=== PATIENT | male | born 1960 | race Caucasian/White ===

== ENCOUNTER → 2017-03-25 | Outpatient (CLI) | payer MEDICARE, OTHER ==
[2017-03-25 08:53] LABS: BASO % 0.6 % (0.0-1.0); EOS # 0.2 10*3/uL (0.0-0.4); EOS % 3.5 % (1.0-4.0); HEMATOCRIT 39.8 % (42.0-52.0); HEMOGLOBIN 13.2 g/dl (14.0-18.0); LYMPH # 1.4 10*3/uL (1.3-4.4); LYMPH % 26.6 % (27.0-41.0); MEAN CORPUSCULAR HGB 29.9 pg (27.0-31.0); MEAN CORPUSCULAR HGB CONC 33.2 g/dl (33.0-37.0); MEAN PLATELET VOLUME 8.8 fl (9.6-12.3); MONO # 0.5 10*3/uL (0.1-1.0); MONO % 9.4 % (3.0-9.0); NEUT # 3.2 10*3/uL (2.3-7.9); NEUT % 59.5 % (47.0-73.0); PLATELET COUNT AUTOMATED 200 10*3/uL (130-400); RED BLOOD COUNT 4.42 10*6/uL (4.50-5.90); WHITE BLOOD COUNT 5.4 10*3/uL (4.8-10.8)
[2017-03-25 09:23] LABS: ALBUMIN 3.5 gm/dl (3.1-4.5); ALKALINE PHOSPHATASE 64 U/L (45-117); BILIRUBIN, DIRECT < 0.1 mg/dL (0.0-0.2); BILIRUBIN, TOTAL 0.4 mg/dl (0.2-1.0); BUN 10 mg/dl (7-24); CARBON DIOXIDE 29 mmol/L (21-32); CHLORIDE 103 mmol/L (98-107); CHOLESTEROL 241 mg/dL (<200); EST GLOM FILT AFRICAN AMERICAN > 60 ml/min; GLUCOSE 110 mg/dL (65-99); HDL CHOLESTEROL 62 mg/dl (40-60); LDL CHOLESTEROL 126 mg/dL (9-159); PHOSPHOROUS 3.2 mg/dL (2.5-4.9); POTASSIUM 4.3 mmol/L (3.5-5.1); SGOT/AST 16 IU/L (3-35); SGPT/ALT 27 U/L (12-78); SODIUM 141 mmol/L (136-145); TOTAL PROTEIN 6.6 gm/dL (6.4-8.2); TRIGLYCERIDES 263 mg/dl (<150); VLDL CHOLESTEROL 53 mg/dL (6-40)
[2017-03-25 09:25] LABS: C-REACTIVE PROTEIN < 0.29 MG/DL (0-0.3)
[2017-03-25 09:59] LABS: FOLIC ACID > 24.00 ng/mL (>5.38)
[2017-03-26 08:12] LABS: RHEUMATOID ARTHRITIS FACTOR 10.1 IU/mL (0.0-13.9)
[2017-03-26 11:04] LABS: ANTI-RNP ANTIBODIES 0.9 AI (0.0-0.9); ANTI-SMITH ANTIBODIES <0.2 AI (0.0-0.9)
[2017-03-26 12:07] LABS: LYME AB/TOTAL IMMUNOGLOBULINS <0.91 ISR (0.00-0.90)
== END | disposition home or self-care (01) ==
LOC: LAB 08:26
PROVIDERS: Physician Assistant
DX: M17.11 Unilateral primary osteoarthritis, right knee (principal); M25.461 Effusion, right knee; E78.2 Mixed hyperlipidemia; I10 Essential (primary) hypertension

== ENCOUNTER → 2018-02-03 | Outpatient (CLI) | payer MEDICARE, OTHER ==
[2018-02-03 09:57] LABS: BASO # 0.1 10*3/uL (0.0-0.1); BASO % 0.7 % (0.0-1.0); EOS # 0.2 10*3/uL (0.0-0.4); EOS % 2.7 % (1.0-4.0); HEMATOCRIT 42.9 % (42.0-52.0); LYMPH # 2.6 10*3/uL (1.3-4.4); LYMPH % 31.4 % (27.0-41.0); MEAN CELL VOLUME 90.1 fl (80.0-94.0); MEAN CORPUSCULAR HGB 29.4 pg (27.0-31.0); MEAN CORPUSCULAR HGB CONC 32.6 g/dl (33.0-37.0); MEAN PLATELET VOLUME 9.2 fl (9.6-12.3); MONO # 0.8 10*3/uL (0.1-1.0); MONO % 9.5 % (3.0-9.0); NEUT # 4.5 10*3/uL (2.3-7.9); NEUT % 55.2 % (47.0-73.0); PLATELET COUNT AUTOMATED 261 10*3/uL (130-400); RED BLOOD COUNT 4.76 10*6/uL (4.50-5.90); RED CELL DISTRI WIDTH 12.3 % (0-14.5); WHITE BLOOD COUNT 8.2 10*3/uL (4.8-10.8)
[2018-02-03 10:17] LABS: ALBUMIN 3.7 gm/dl (3.1-4.5); ALKALINE PHOSPHATASE 82 U/L (45-117); BILIRUBIN, DIRECT 0.1 mg/dL (0.0-0.2); BUN 10 mg/dl (7-24); CHLORIDE 102 mmol/L (98-107); CHOLESTEROL 235 mg/dL (<200); CREATININE 0.86 mg/dL (0.70-1.30); HDL CHOLESTEROL 61 mg/dl (40-60); LDL CHOLESTEROL 130 mg/dL (9-159); POTASSIUM 4.6 mmol/L (3.5-5.1); SGOT/AST 28 IU/L (3-35); SGPT/ALT 44 U/L (12-78); SODIUM 138 mmol/L (136-145); TOTAL PROTEIN 7.2 gm/dL (6.4-8.2); TRIGLYCERIDES 220 mg/dl (<150); VLDL CHOLESTEROL 44 mg/dL (6-40)
[2018-02-04 21:04] LABS: AMPHETAMINE SCREEN, URINE Negative ng/mL (Cutoff=1000); BARBITURATES SCREEN, URINE Negative ng/mL (Cutoff=200); BENZODIAZEPINES SCREEN URINE Negative ng/mL (Cutoff=200); BUPRENORPHINE SCREEN URINE Negative ng/mL (Cutoff=10); CANNABINOID SCREEN, URINE Negative ng/mL (Cutoff=20); CREATININE, UR 57.7 mg/dL (20.0-300.0); METHADONE SCREEN, URINE Negative ng/mL (Cutoff=300); OPIATE SCREEN, URINE Positive ng/mL (Cutoff=300); OXYCODONE SCREEN URINE Positive ng/mL (Cutoff=100); PH URINE 5.4 (4.5-8.9); PROPOXYPHENE SCREEN, URINE Negative ng/mL (Cutoff=300)
[2018-02-05 00:03] LABS: TESTOSTERONE FREE, (DIRECT) 6.2 pg/mL (7.2-24.0)
== END | disposition home or self-care (01) ==
LOC: LAB 09:14
PROVIDERS: Internal Medicine
DX: E78.2 Mixed hyperlipidemia (principal); I10 Essential (primary) hypertension; F11.90 Opioid use, unspecified, uncomplicated; M48.061 Spinal stenosis, lumbar region without neurogenic claudication; G89.4 Chronic pain syndrome

== ENCOUNTER → 2019-03-30 | Outpatient (CLI) | payer MEDICARE, OTHER ==
[~2019-03-30] MED LIST: AMOXICILLIN500 M2 PO
[2019-03-30 13:27] LABS: BASO % 0.4 % (0.0-1.0); EOS # 0.2 10*3/uL (0.0-0.4); EOS % 2.9 % (1.0-4.0); HEMATOCRIT 43.8 % (42.0-52.0); HEMOGLOBIN 14.6 g/dl (14.0-18.0); LYMPH # 2.3 10*3/uL (1.3-4.4); LYMPH % 28.5 % (27.0-41.0); MEAN CELL VOLUME 91.6 fl (80.0-94.0); MEAN CORPUSCULAR HGB 30.5 pg (27.0-31.0); MEAN CORPUSCULAR HGB CONC 33.3 g/dl (33.0-37.0); MEAN PLATELET VOLUME 9.3 fl (9.6-12.3); MONO # 0.6 10*3/uL (0.1-1.0); MONO % 8.1 % (3.0-9.0); NEUT # 4.7 10*3/uL (2.3-7.9); NEUT % 59.5 % (47.0-73.0); PLATELET COUNT AUTOMATED 235 10*3/uL (130-400); RED BLOOD COUNT 4.78 10*6/uL (4.50-5.90); RED CELL DISTRI WIDTH 11.9 % (0-14.5); WHITE BLOOD COUNT 7.9 10*3/uL (4.8-10.8)
[2019-03-30 13:58] LABS: ALBUMIN 3.6 gm/dl (3.1-4.5); BILIRUBIN, DIRECT 0.1 mg/dL (0.0-0.2); BUN 16 mg/dl (7-24); CHLORIDE 103 mmol/L (98-107); CREATININE 0.91 mg/dL (0.70-1.30); PHOSPHOROUS 3.6 mg/dL (2.5-4.9); POTASSIUM 5.2 mmol/L (3.5-5.1); SGOT/AST 14 IU/L (3-35); SGPT/ALT 30 U/L (12-78); SODIUM 138 mmol/L (136-145); TOTAL PROTEIN 6.6 gm/dL (6.4-8.2)
[2019-03-30 14:07] LABS: ALKALINE PHOSPHATASE 75 U/L (45-117)
[2019-03-31 17:09] LABS: BARBITURATE, URINE Negative ng/mL (Cutoff=200); CANNABINOID, URINE Negative ng/mL (Cutoff=20); CREATININE, UR 48.5 mg/dL (20.0-300.0)
[2019-04-01 08:08] LABS: TESTOSTERONE FREE, (DIRECT) 2.7 pg/mL (7.2-24.0)
== END | disposition home or self-care (01) ==
LOC: LAB 13:00
PROVIDERS: Internal Medicine
DX: G89.4 Chronic pain syndrome (principal); I10 Essential (primary) hypertension

== ENCOUNTER → 2019-05-04 | Outpatient (CLI) | payer MEDICARE, OTHER, MEDICAID | END | disposition home or self-care (01) | LOC: MRI 13:34 | DX: M17.11 Unilateral primary osteoarthritis, right knee (principal); M25.461 Effusion, right knee ==

== ENCOUNTER → 2019-11-01 | Outpatient (CLI) | payer MEDICARE, OTHER ==
[2019-11-01 11:57] LABS: BASO % 0.4 % (0.0-1.0); EOS # 0.2 10*3/uL (0.0-0.4); EOS % 3.4 % (1.0-4.0); HEMATOCRIT 43.8 % (42.0-52.0); HEMOGLOBIN 14.1 g/dl (14.0-18.0); LYMPH # 2.5 10*3/uL (1.3-4.4); LYMPH % 36.4 % (27.0-41.0); MEAN CELL VOLUME 91.8 fl (80.0-94.0); MEAN CORPUSCULAR HGB 29.6 pg (27.0-31.0); MEAN CORPUSCULAR HGB CONC 32.2 g/dl (33.0-37.0); MEAN PLATELET VOLUME 9.4 fl (9.6-12.3); MONO # 0.7 10*3/uL (0.1-1.0); MONO % 10.1 % (3.0-9.0); NEUT # 3.3 10*3/uL (2.3-7.9); NEUT % 49.6 % (47.0-73.0); PLATELET COUNT AUTOMATED 273 10*3/uL (130-400); RED BLOOD COUNT 4.77 10*6/uL (4.50-5.90); RED CELL DISTRI WIDTH 11.9 % (0-14.5); WHITE BLOOD COUNT 6.8 10*3/uL (4.8-10.8)
[2019-11-01 11:59] LABS: BILIRUBIN NEGATIVE (NEGATIVE); BLOOD 2+ (NEGATIVE); CLARITY CLEAR (CLEAR); COLOR YELLOW (YELLOW); GLUCOSE NEGATIVE (NEGATIVE); KETONE NEGATIVE (NEGATIVE); LEUKO ESTERASE NEGATIVE (NEGATIVE); NITRITE NEGATIVE (NEGATIVE); UROBILINOGEN 0.2 E.U./dl (0.2-1.0)
[2019-11-01 12:12] LABS: WBC 0-2 wbc/hpf (0-5)
[2019-11-01 12:15] LABS: ALBUMIN 3.8 gm/dl (3.1-4.5); ALKALINE PHOSPHATASE 80 U/L (45-117); BILIRUBIN, DIRECT 0.1 mg/dL (0.0-0.2); BUN 15 mg/dl (7-24); CHLORIDE 101 mmol/L (98-107); CREATININE 0.78 mg/dL (0.70-1.30); PHOSPHOROUS 3.3 mg/dL (2.5-4.9); POTASSIUM 4.5 mmol/L (3.5-5.1); SGOT/AST 19 IU/L (3-35); SGPT/ALT 34 U/L (12-78); SODIUM 136 mmol/L (136-145); TOTAL PROTEIN 7.2 gm/dL (6.4-8.2)
== END | disposition home or self-care (01) ==
LOC: LAB 11:06
PROVIDERS: Internal Medicine; Orthopaedic Surgery
DX: Z01.818 Encounter for other preprocedural examination (principal); M19.90 Unspecified osteoarthritis, unspecified site; I10 Essential (primary) hypertension; E03.9 Hypothyroidism, unspecified; Z79.01 Long term (current) use of anticoagulants; Z79.899 Other long term (current) drug therapy

== ENCOUNTER → 2020-08-02 | Outpatient (CLI) | payer MEDICARE, MEDICAID ==
[2020-08-03 21:06] LABS: AMPHETAMINE SCREEN, URINE Negative ng/mL (Cutoff=1000); BARBITURATES SCREEN, URINE Negative ng/mL (Cutoff=200); BENZODIAZEPINES SCREEN URINE Negative ng/mL (Cutoff=200); BUPRENORPHINE SCREEN URINE Negative ng/mL (Cutoff=10); CANNABINOID SCREEN, URINE Negative ng/mL (Cutoff=20); CREATININE, UR 24.5 mg/dL (20.0-300.0); METHADONE SCREEN, URINE Negative ng/mL (Cutoff=300); OPIATE SCREEN, URINE Positive ng/mL (Cutoff=300); OXYCODONE SCREEN URINE Positive ng/mL (Cutoff=100); PH URINE 6.5 (4.5-8.9); PROPOXYPHENE SCREEN, URINE Negative ng/mL (Cutoff=300)
== END | disposition home or self-care (01) ==
LOC: LAB 12:04
PROVIDERS: ATTEND Internal Medicine
DX: G89.4 Chronic pain syndrome (principal); M48.061 Spinal stenosis, lumbar region without neurogenic claudication

== ENCOUNTER 2020-08-07 12:26 | Emergency (ER) | payer MEDICARE, MEDICAID ==
[~2020-08-07] VITALS: Ht 175.2 cm; Wt 113.4 kg
== END 2020-08-07 14:26 | disposition home or self-care (01) ==
LOC: ED 12:26
DX: S22.32XA Fracture of one rib, left side, initial encounter for closed fracture (principal); Z79.899 Other long term (current) drug therapy; X58.XXXA Exposure to other specified factors, initial encounter; Y93.9 Activity, unspecified; Y92.89 Other specified places as the place of occurrence of the external cause; Y99.8 Other external cause status

== ENCOUNTER 2020-12-10 12:50 | Emergency (ER) | payer MEDICARE, MEDICAID ==
[~2020-12-10] VITALS: Wt 121.6 kg
[2020-12-10] MEDS ORDERED: OXYCODONE HYDRO30 MG PO (13:24)
[2020-12-10] MEDS ORDERED: GABAPENTIN400 MG PO (13:24)
[2020-12-10] MEDS ORDERED: OXYCONTIN30 M1 PO (13:25)
[2020-12-10] MEDS ORDERED: CARVEDILOL6.25 MG PO (13:26)
[2020-12-10] MEDS ORDERED: LOTREL 10-40 M1 EACH PO (13:26)
[2020-12-10] MEDS ORDERED: NEURONTIN300 MG PO (13:27)
[2020-12-10] MEDS ORDERED: TRIAMTERENE-HC1 EACH PO (13:27)
[2020-12-10] MEDS ORDERED: PREDNISONE10 MG PO (14:07)
== END 2020-12-10 14:36 | disposition home or self-care (01) ==
LOC: ED 12:50
DX: L25.9 Unspecified contact dermatitis, unspecified cause (principal); I10 Essential (primary) hypertension; Z96.651 Presence of right artificial knee joint; Z79.899 Other long term (current) drug therapy

== ENCOUNTER 2021-05-29 09:23 | Emergency (ER) | payer MEDICARE ==
[~2021-05-29] VITALS: Wt 116.1 kg
[~2021-05-29 09:23] MED LIST changes: +CARVEDILOL6.25 MG PO; +GABAPENTIN400 MG PO; +LOTREL 10-40 M1 EACH PO; +NEURONTIN300 MG PO; +OXYCODONE HYDRO30 MG PO; +OXYCONTIN30 M1 PO; +PREDNISONE10 MG PO; +TRIAMTERENE-HC1 EACH PO
[2021-05-29 10:46] LABS: BASO % 0.4 % (0.0-1.0); EOS # 0.1 10*3/uL (0.0-0.4); EOS % 1.6 % (1.0-4.0); HEMATOCRIT 40.8 % (42.0-52.0); LYMPH # 1.7 10*3/uL (1.3-4.4); LYMPH % 19.5 % (27.0-41.0); MEAN CELL VOLUME 90.1 fl (80.0-94.0); MEAN CORPUSCULAR HGB 30.2 pg (27.0-31.0); MEAN CORPUSCULAR HGB CONC 33.6 g/dl (33.0-37.0); MEAN PLATELET VOLUME 9.3 fl (9.6-12.3); MONO # 0.8 10*3/uL (0.1-1.0); MONO % 8.4 % (3.0-9.0); NEUT # 6.2 10*3/uL (2.3-7.9); NEUT % 69.8 % (47.0-73.0); PLATELET COUNT AUTOMATED 263 10*3/uL (130-400); RED BLOOD COUNT 4.53 10*6/uL (4.50-5.90); RED CELL DISTRI WIDTH 11.9 % (0-14.5); WHITE BLOOD COUNT 8.9 10*3/uL (4.8-10.8)
[2021-05-29 11:02] LABS: ALBUMIN 3.7 gm/dl (3.1-4.5); ALKALINE PHOSPHATASE 68 U/L (45-117); BUN 10 mg/dl (7-24); CHLORIDE 105 mmol/L (98-107); CREATININE 0.77 mg/dL (0.70-1.30); POTASSIUM 4.4 mmol/L (3.5-5.1); SGOT/AST 21 IU/L (3-35); SGPT/ALT 42 U/L (12-78); SODIUM 138 mmol/L (136-145); TOTAL PROTEIN 6.9 gm/dL (6.4-8.2); URIC ACID 9.4 mg/dL (3.5-7.2)
[2021-05-29] MEDS ORDERED: NAPROSYN500 MG PO (11:46)
[2021-05-29] MEDS ORDERED: CEPHALEXIN500 M1 PO (11:46)
== END 2021-05-29 11:49 | disposition home or self-care (01) ==
LOC: ED 09:23
PROVIDERS: Emergency Medicine
DX: L03.116 Cellulitis of left lower limb (principal); M17.12 Unilateral primary osteoarthritis, left knee; Z79.899 Other long term (current) drug therapy

== ENCOUNTER 2023-04-17 21:16 | Emergency (ER) | payer MEDICARE ==
[~2023-04-17 21:16] MED LIST changes: +CEPHALEXIN500 M1 PO; +NAPROSYN500 MG PO
[2023-04-17 21:38] LABS: BASO # 0.1 10*3/uL (0.0-0.1); BASO % 1.6 % (0.0-1.0); EOS # 0.6 10*3/uL (0.0-0.4); EOS % 8.8 % (1.0-4.0); HEMATOCRIT 40.7 % (42.0-52.0); LYMPH # 2.1 10*3/uL (1.3-4.4); LYMPH % 33.3 % (27.0-41.0); MEAN CELL VOLUME 89.3 fl (80.0-94.0); MEAN CORPUSCULAR HGB 30.9 pg (27.0-31.0); MEAN CORPUSCULAR HGB CONC 34.6 g/dl (33.0-37.0); MEAN PLATELET VOLUME 8.6 fl (9.6-12.3); MONO # 0.7 10*3/uL (0.1-1.0); MONO % 11.1 % (3.0-9.0); NEUT # 2.8 10*3/uL (2.3-7.9); NEUT % 44.9 % (47.0-73.0); PLATELET COUNT AUTOMATED 234 10*3/uL (130-400); RED BLOOD COUNT 4.56 10*6/uL (4.50-5.90); RED CELL DISTRI WIDTH 11.7 % (0-14.5); WHITE BLOOD COUNT 6.3 10*3/uL (4.8-10.8)
[2023-04-17 22:12] LABS: ALKALINE PHOSPHATASE 74 U/L (46-116); BUN 12 mg/dl (9-23); CHLORIDE 97 mmol/L (98-107); POTASSIUM 5.2 mmol/L (3.4-5.1); SGPT/ALT 28 U/L (10-49)
== END 2023-04-17 23:55 | disposition home or self-care (01) ==
LOC: ED 21:16
PROVIDERS: Internal Medicine
DX: F41.9 Anxiety disorder, unspecified (principal); I48.91 Unspecified atrial fibrillation; E87.8 Other disorders of electrolyte and fluid balance, not elsewhere classified; I10 Essential (primary) hypertension

== ENCOUNTER 2025-10-03 11:34 | Emergency (ER) | payer MEDICARE ==
[~2025-10-03] VITALS: Ht 172.7 cm; Wt 100.7 kg
[~2025-10-03 11:34] MED LIST changes: +ALLOPURINOL100 MG PO; +CYCLOBENZAPRINE10 MG PO; +GABAPENTIN100 M2 PO; +OXYCONTIN15 M1 PO; +REMERON30 M1 PO; +VITAMIN D350 MCG PO; +XARE20MG PO
[2025-10-03] MEDS ORDERED: Bacitracin Zinc 14 GM TUBE T ONE (12:55)
[2025-10-03] MEDS ORDERED: CEPHALEXIN 500 MG CAP PO ONE (12:55)
[2025-10-03] MEDS ORDERED: Tdap Vaccine 0.5 ML SYR (Adult Vaccine) IM ONE (12:55)
[2025-10-03] MEDS ORDERED: Lidocaine Hydrochloride 2% 10 ML AMP SC ONE (12:55)
[2025-10-03] MEDS ORDERED: CEPHALEXIN500 M1 PO (14:09)
== END 2025-10-03 14:18 | disposition home or self-care (01) ==
LOC: ED 11:34
DX: S61.210A Laceration without foreign body of right index finger without damage to nail, initial encounter (principal); I10 Essential (primary) hypertension; I48.91 Unspecified atrial fibrillation; W45.8XXA Other foreign body or object entering through skin, initial encounter; Y93.89 Activity, other specified; Y92.89 Other specified places as the place of occurrence of the external cause; Y99.8 Other external cause status